=== PATIENT | female | born 1970 | race Two or more races ===

== ENCOUNTER → 2024-07-04 | Outpatient (CLI) | payer MEDICAID, SELFPAY ==
--- NOTE | 2024-07-04 | XR_ITS ---
Examination: Foot, left, 3 views Technique: AP, oblique, lateral views foot, 3 views Date and time of exam: July 04, 2024 1115 hrs. Indications: Left foot pain 3 months. Findings: Prominent osteopenia Moderate osteoarthritis first metatarsophalangeal joint Fracture at the base of the fifth metatarsal, best depicted on the lateral view with 2 mm offset at the fracture site Small plantar posterior bony calcaneal spurs Impression: Subacute fracture base fifth metatarsal, recommend continued follow-up to exclude nonunion at the fracture site
== END | disposition home or self-care (01) ==
PROVIDERS: PCP Physician Assistant; Referring Provider Student in an Organized Health Care Education/Training Program; Visit Provider Student in an Organized Health Care Education/Training Program
DX: S92.352A Displaced fracture of fifth metatarsal bone, left foot, initial encounter for closed fracture (principal); X58.XXXA Exposure to other specified factors, initial encounter
CPT/HCPCS: 73630

== ENCOUNTER 2025-03-11 09:35 | Day surgery (SDC) | payer MEDICAID, SELFPAY ==
[2025-03-11] VITALS (13 sets, daily range): BP systolic 115–139; BP diastolic 70–98; PULSE 63–85; RESP 13–27; TEMP 36.1–37.1; O2SAT 93–100; BMI 40.2
--- NOTE | 2025-03-11 14:06 | SUR.PHASEII ---
patient into recovery with no acute distress noted, v/s stable, no complaints of pain or nausea at this time. Patient passing flatus. report received from Kimberli RAZA.
--- NOTE | 2025-03-11 14:38 | SUR.PHASEII ---
d/c instructions given by Kimberli RAZA, patient discharged home.
== END 2025-03-11 14:38 | disposition home or self-care (01) ==
PROVIDERS: PCP Family Medicine; Referring Provider Specialist; Visit Provider Specialist
PROC: 0DJD8ZZ Inspection of Lower Intestinal Tract, Via Natural or Artificial Opening Endoscopic (ICD-10-PCS; CPT 45378; principal; 2025-03-11 10:30)
DX: Z12.11 Encounter for screening for malignant neoplasm of colon (principal); K64.9 Unspecified hemorrhoids
CPT/HCPCS: 45378; 81025; A4649; J1200; J2250; J3010